=== PATIENT | female | born 1970 | race American Indian/Alaskan Native ===

== ENCOUNTER 2018-11-03 18:32 | Emergency (ER) | payer OTHER, BC ==
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
[2018-11-03 20:01] VITALS: BP 164/107
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
== END 2018-11-03 23:20 | disposition home or self-care (01) ==
LOC: ED 18:32
DX: S16.1XXA Strain of muscle, fascia and tendon at neck level, initial encounter (principal); E66.01 Morbid (severe) obesity due to excess calories; V89.2XXA Person injured in unspecified motor-vehicle accident, traffic, initial encounter; Y93.89 Activity, other specified; Y92.488 Other paved roadways as the place of occurrence of the external cause; Y99.8 Other external cause status
CPT/HCPCS: 72040; 72100; 99283